=== PATIENT | female | born 1965 | race Caucasian/White ===

== ENCOUNTER 2017-09-12 13:53 | Inpatient (IN) | payer BC, SELFPAY ==
[2017-09-12] VITALS (12 sets, daily range): BP systolic 132–158; BP diastolic 63–117; PULSE 78–114; RESP 15–19; TEMP 37–37.8; O2SAT 87–97; BMI 44.3; BMI 44.0
--- NOTE | 2017-09-12 14:25 | EKG12_ITS ---
Test Reason : SOB Blood Pressure : / mmHG Vent. Rate : 091 BPM Atrial Rate : 091 BPM P-R Int : 160 ms QRS Dur : 080 ms QT Int : 350 ms P-R-T Axes : 024 -18 002 degrees QTc Int : 430 ms Normal sinus rhythm Nonspecific T wave abnormality Abnormal ECG Confirmed by LIDA MORRIS ([id number]), online editor SYDNI RED ([id number]) on 09/16/2017 1:47:07 PM Referred By: VAHE Confirmed By:LIDA MORRIS
--- NOTE | 2017-09-12 14:46 | RAD_ITS ---
STUDY: X-RAY CHEST REASON FOR EXAM: Female, 51 years old. Cough, Hypoxia and wheezing. TECHNIQUE: Frontal and lateral views of the chest. COMPARISON: 06/19/2017. FINDINGS: The lungs are clear and expanded. There is no demonstrated pleural abnormality. Normal size heart. Normal mediastinum and ashley. Normal visualized pulmonary arteries. Normal visualized aortic arch and descending thoracic aorta. Normal visualized thoracic spine. Normal visualized ribs, clavicles, and shoulders. There is no demonstrated abnormality of the visualized soft tissue structures of the upper abdomen. RAD/Chest PA and Lateral IMPRESSION: Normal x-ray examination of the chest. Electronically Signed: Fred Hansen MD at 15:14 EDT , Service support ,
[2017-09-12] MEDS: Albuterol 2.5 MG/3 ML VIAL.NEB. INHALATION (14:56)
[2017-09-12] MEDS: Ipratropium/Albuterol Sulfate 3 ML AMPUL.NEB INHALATION ×2 (14:56→19:55)
[2017-09-12 15:00] LABS: International Normalized Ratio 1.3; Prothrombin Time (Protime)PT. 15.8 SECONDS (11.7-14.9)
[2017-09-12 15:01] LABS: Partial Thromboplast Time 41.4 Seconds (24.1-36.2)
[2017-09-12 15:02] LABS: Absolute Lymphocyte Count 0.44 X10^3/ul (0.83-4.51); Absolute Neutrophil Count 2.7 X10^3/uL (2.0-7.7); Differential Indicated SCAN CRITERIA MET; Hematocrit 37.9 % (37-47); Hemoglobin 12.2 g/dl (12.0-15.0); Lymphocyte # 0.44 X10^3/ul (4.0); Lymphocyte % 13.6 % (19-41); Mean Corp Hgb Conc 32.2 g/gl (32-36); Mean Corpuscular Hgb 27.2 pg (27.0-32.0); Mean Corpuscular Volume 84.6 fL (81-99); Mean Platelet Vol. 8.6 fl (6.2-12.0); Monocyte% 3.1 % (0-10); Neutrophil # 2.69 X10^3/uL (2.7-7.7); Neutrophil % 83.3 % (47-70); POSITIVE COUNT NO; POSITIVE DIFFERENTIAL YES; POSITIVE MORPHOLOGY NO; Platelet Count 142 K/mm3 (150-450); RBC Distribution Width CV 14.9 % (11.6-14.6); RBC Distribution Width SD 46.3 fl (35.1-43.9); Red Blood Count 4.48 M/mm3 (4.2-5.4); White Blood Count 3.2 K/mm3 (4.4-11.0)
[2017-09-12 15:29] LABS: ALB/GLOB Ratio 0.8 RATIO (0.9-2.4); AST(SGOT) 20 U/L (15-37); Alanine Aminotransfer ALT/SGPT 28 U/L (13-56); Albumin, Serum 3.3 g/dL (3.2-5.0); Alkaline Phosphatase 78 U/L (45-117); Anion Gap 11 (5-15); BUN 10 mg/dL (7-18); BUN/Creat Ratio 17.7 RATIO (10-20); Calcium,Total 8.4 mg/dL (8.5-10.1); Chloride 98 mmol/L (98-107); Creatinine, Serum 0.56 mg/dL (0.55-1.02); EST Glomerular Filtration Rate 120 mL/min (>60); Est Glom Filt Rate - Afr Amer 145 mL/min (>60); Globulin 3.9 g/dL (2.2-4.2); Glucose 105 mg/dL (74-106); Potassium 3.4 mmol/L (3.5-5.1); Protein, Total 7.2 g/dL (6.4-8.2); Sodium Level 134 mmol/L (136-145)
--- NOTE | 2017-09-12 15:37 | ED.VISSUMM ---
- ER Visit Summary Date of Service: 09/12/17 Chief Complaint: Shortness of breath, productive cough and rattling in chest History of Present Illness: The patient is a 51 F who resents because of acute onset of respiratory illness that started Saturday. She has history of hypercholesterolemia, community acquired pneumonia and history of VTE. She does have factor V Leiden mutation. She is on Coumadin secondary to prior DVT. She reports compliance with her medications. She does smoke. She denies history of asthma or COPD. She denies leg pain, swelling discoloration. She denies chest pain of any type including pleuritic. She does complain of subjective fever with palpitations dyspnea productive cough of green colored sputum and dyspnea on exertion. She denies orthopnea or PND. She denies GI or symptoms. She denies myalgias arthralgias. She does combine of headache and weakness. She has paperwork that she brought and was treated with doxycycline and albuterol. Physical Examination: Is tachypnic. She is hypoxic with O2 saturation 80% on room air. She is heavyset with a BMI of 44.4. Blood pressure is elevated at 146/76. Initial respiratory rate was 26 with a heart rate of 76. Head is atraumatic normocephalic. Pupils are equal round reactive. Extraocular muscles are intact. TMs are pearly white with landmarks noted. Nares patent with no drainage. Posterior pharynx without erythema or exudate. Uvula is midline. There is no dysphonia or dysphasia. Trachea is midline. There is no stridor with auscultation of the neck. Heart is regular without murmur, gallop or rub. Lungs reveal wheezing throughout with increased x-ray phase. There is no egophony or increased vocal fremitus. Abdomen is soft nontender. There is no asymmetry, swelling, discoloration, leg vein distention, palpable cords or tenderness along the distribution of the deep venous system. Test Results: EKG sinus rhythm rate 91 and minimal ossific changes. Two-view chest x-ray is normal. White count is 3.2 thousand with 83% segs. Sodium is 134 potassium 3.4. INR is 1.3. Lactate is normal at 1.0. Hepatic is normal. Patient was reassessed at 1540. She still has wheezing. She is not wheezing as much as she did when she presented. She remains tachypneic with respiratory 26. She is presently on supplemental oxygen because she is hypoxic. Emergency Department Course and Treatment: Patient with respiratory symptoms concerned she may have sepsis infectious workup was undertaken. EKG was obtained to evaluate for cardiac ischemia. Chest x-ray to evaluate for pneumonia pneumothorax etc. Treatment Plan: Patient was treated with DuoNeb followed by 3 albuterol treatments. She also received 250 mg of Norflex IV piggyback. She was reassessed at 1540. Since she is still wheezing she received 125 mg of Solu-Medrol. Disposition: Since patient is hypoxic remains tachypnic and is still wheezing in spite of appropriate outpatient therapy and ER therapy hospitalist has been paged for admission Impression: 1. Respiratory failure with hypoxia 2. Bronchospasm 3. Purulent bronchitis 4. History of DVT 5. History of factor V Leiden mutation 6. Subtherapeutic INR This note was generated with [employer] dictation software. It may contain incorrect words, spelling, and punctuation that were not noted in review of the chart prior to signing ED Disposition - Plan for ED Patient: Chief Complaint: Shortness of Breath Referrals: Debora Treadwell DO [Primary Care Provider] -
[2017-09-12 15:39] LABS: Mucous, Urine 0 SEEN /hpf (<or=2+)
[2017-09-12 15:46] LABS: Platelet Estimate ADEQUATE (ADEQ); Red Cell Morphology NORM C+C NORMAL (NORM C&C)
[2017-09-12 15:47] LABS: Color, Urine Yellow (Yellow); Glucose, Dipstick Normal (Normal); Ketone-Dipstick 50 mg/dl (Negative); Leukocyte Esterase-Dipstick 100 /ul (Negative); Nitrite-Dipstick Negative (Negative); Occult Blood-Urine 25 /ul (Negative); Protein-Dipstick 15 mg/dl (Negative); Urine Bilirubin Dipstick Negative (Negative); Urine Clarity Sl. Cloudy (Clear); Urine Urobilinogen Normal (Normal)
[2017-09-12 16:10] LABS: Bacteria RARE /hpf (None Seen); Red Blood Cells-Urine 0-5 SEEN /hpf (0-5); Squamous Epithelial Cells - UA 10-25 SEEN /hpf (5-10); White Blood Cells 0-5 SEEN /hpf (0-5)
[2017-09-12] MEDS: MethylPREDNISolone 125 MG/2 ML Vial IV (16:15)
--- NOTE | 2017-09-12 16:43 | HP.PCM_ITS ---
Problem List (1) Chronic anticoagulation Status: Chronic (2) Factor V Leiden mutation Status: Chronic (3) Dyslipidemia Status: Chronic (4) History of recurrent deep vein thrombosis (DVT) Status: Chronic History of Present Illness Date of Admission: 09/12/17 Chief Complaint: Shortness of breath, productive cough. The patient is a 51 year old F with past medical history as mentioned above presented to the emergency room because of productive cough and shortness of breath. Her symptoms started 3 days ago with shortness of breath on minimal exertion, aggravated by activity, associated with productive cough with minimal amount of yellow sputum as well as subjective fever and without significant relieving factors. She did mention that she had fever at home of 102 Fahrenheit. She reported associated nasal congestion. On Saturday, she went to her PCPs office and she was given prescription for doxycycline. Her symptoms did not improve and she continued to have significant shortness of breath and cough. Today, she came to the emergency room. In the emergency room, she was afebrile, heart rate was stable, blood pressure was slightly elevated, pulse ox was 87% on room air which improved to 95% on 4 L. Her routine blood work is remarkable for sodium of 134 and potassium 3.4. Lactic acid was normal. LFT was normal. Urine revealed cloudy urine, negative for nitrite, 0-5 WBCs and rare bacteria. Chest x-ray showed no acute infiltrate, consultation or effusion. Her EKG revealed normal sinus rhythm without evidence of acute ischemic changes or cardiac arrhythmias. She is being admitted for acute bronchitis and hypoxia. Past Medical History Past Medical History (Chronic Problems): Chronic Problems Morbid obesity (Chronic) Chronic anticoagulation (Chronic) Factor V Leiden mutation (Chronic) Dyslipidemia (Chronic) History of recurrent deep vein thrombosis (DVT) (Chronic) Allergies Penicillins Allergy (Verified 09/12/17 13:53) Hives Sulfa (Sulfonamide Antibiotics) Allergy (Verified 09/12/17 13:53) Hives Home Medications: Ambulatory Orders Medication Instructions Recorded Simvastatin [Zocor] 20 mg PO QHS 06/13/17 Warfarin [Coumadin] 2 mg PO DAILY 06/13/17 Doxycycline 100 mg PO BID #8 cap 06/19/17 Ferrous Sulfate 325 mg PO BIDCM #60 tab 06/19/17 Hydrocodone Bit/Homatropine 5 - 10 ml PO QHS PRN PRN #60 ml 06/19/17 [Hycodan Syrup] Albuterol Sulfate [Proair 2 puff IH Q6H PRN PRN 09/12/17 Respiclick] Multivitamin [Multiple Vitamins] 1 each PO DAILY 09/12/17 Surgical History: noncontributory Psychiatric History: No pertinent psych hx Lives: Spouse/ Significant Other Smoking Status: Never smoker Alcohol: None Drugs: None - *Family History Maternal History Items: No pertinent history Paternal History Items: No pertinent history Review of Systems Constitutional: Reports: Fever. Denies: Anorexia, Chills, Weakness Eyes: Denies: Blurred vision, Double vision, Drainage, Redness HEENT: Reports: Nasal Congestion. Denies: Difficulty Hearing, Ear Pain, Eye Pain, Sore Throat Cardiovascular: Denies: Chest Pain, Chest Pressure, Edema, Heaviness, Light Headedness, Orthopnea, Paroxysmal Noc. Dyspnea, Syncope Respiratory: Reports: Cough, Shortness of breath upon exertion, Sputum production, Wheezing Gastrointestinal: Denies: Abdominal Pain, Constipation, Diarrhea, Nausea, Vomiting Genitourinary: Denies: Dysuria, Frequency, Hematuria Musculoskeletal: Denies: Arm Pain, Back Pain, Foot Pain Skin: Denies: Dryness, Rash Neurological: Denies: Balance problems, Double vision, Change in Speech, Slurred speech, Confusion, Focal weakness, Headaches, Incoordination, Numbness Psychiatric: Denies: Anxiety, Depression Endocrine: Denies: Change in Body Habitus, Polydipsia VTE Information - Inpt Only VTE Present on Admission: No VTE Mechan Device Prophylaxis: None VTE Pharm Prophylaxis ordered?: No - Physical Exam General: Alert, Oriented x3, Cooperative, - - Minimal shortness of breath HEENT: Atraumatic, PERRLA, EOMI Oral: Moist Mucosa, No Gingival or Mucosal Lesions/ Ulcerations Neck: Supple, No JVD, Negative Carotid Bruits, Trachea Midline, Thyroid Normal Size and Texture Lungs: Diminished, Rhonchi, Short of Breath, Wheezes, - - Decreased breath sounds bilateral, faint crackles on the right base, scattered rhonchi, occasional wheezes. Cardiovascular: Regular rate, Regular Rhythm, Normal S1, Normal S2, PMI Normal Abdomen: Bowel Sounds Present, Soft, Non Tender, Non-Distended, No Hepato- splenomegaly, Obese Extremities: No clubbing, No cyanosis, No edema Skin: No rashes, No breakdown Lymphatic: No Cervical, Supraclavicular, or Inguinal Adenopathy Neurological: Cranial nerves II-XII grossly intact, Motor Exam 5/5 strength throughout Psych/Mental Status: Normal Affect, Appropriate, Alert and oriented to time, place, person, mood and affect Vital Signs Temp Pulse Resp BP Pulse Ox 98.6 F 98 19 H 139/77 H 94 09/12/17 13:54 09/12/17 16:19 09/12/17 16:19 09/12/17 16:19 09/12/17 16:19 Oxygen Flow Rate (L/min) 2 Oxygen Delivery Method Room Air Weight: 242 lb 8.136 oz Body Mass Index (BMI) 44.3 Microbiology Past 72 Hours 09/12/17 15:18 Influenza Types A,B Direct FA (GRETCHEN) - Final Mucosa - Nose Laboratory Tests Past 24 Hrs 09/12/17 09/12/17 09/12/17 14:40 14:40 14:40 WBC 3.2 L RBC 4.48 Hgb 12.2 Hct 37.9 MCV 84.6 MCH 27.2 MCHC 32.2 RDW 14.9 H RDW Differential 46.3 H Plt Count 142 L MPV 8.6 Immature Gran % (Auto) 0.000 Neut % (Auto) 83.3 H Lymph % (Auto) 13.6 L [place] % (Auto) 3.1 Eos % (Auto) 0.0 Baso % (Auto) 0.0 Absolute Neuts (auto) 2.7 Absolute Lymphs (auto) 0.44 L Total Counted Not Reportable Differential Comment SEE COMMENT Platelet Estimate ADEQUATE RBC Morphology NORM C+C PT 15.8 H INR 1.3 APTT 41.4 H Sodium 134 L Potassium 3.4 L Chloride 98 Carbon Dioxide 25.0 Anion Gap 11 BUN 10 Creatinine 0.56 Estim Creat Clear Calc 94.00 Est GFR (MDRD) Af Amer 145 Est GFR (MDRD) Non-Af 120 BUN/Creatinine Ratio 17.7 Glucose 105 Lactic Acid Calcium 8.4 L Total Bilirubin 0.60 AST 20 ALT 28 Alkaline Phosphatase 78 Total Protein 7.2 Albumin 3.3 Globulin 3.9 Albumin/Globulin Ratio 0.8 L Urine Color Urine Clarity Urine pH Ur Specific [place] Urine Protein Urine Glucose (UA) Urine Ketones Urine Occult Blood Urine Nitrite Urine Bilirubin Urine Urobilinogen Ur Leukocyte Esterase Urine RBC Urine WBC Ur Squamous Epith Cells Urine Bacteria Urine Mucus 09/12/17 09/12/17 14:40 15:36 WBC RBC Hgb Hct MCV MCH MCHC RDW RDW Differential Plt Count MPV Immature Gran % (Auto) Neut % (Auto) Lymph % (Auto) [place] % (Auto) Eos % (Auto) Baso % (Auto) Absolute Neuts (auto) Absolute Lymphs (auto) Total Counted Differential Comment Platelet Estimate RBC Morphology PT INR APTT Sodium Potassium Chloride Carbon Dioxide Anion Gap BUN Creatinine Estim Creat Clear Calc Est GFR (MDRD) Af Amer Est GFR (MDRD) Non-Af BUN/Creatinine Ratio Glucose Lactic Acid 1.0 Calcium Total Bilirubin AST ALT Alkaline Phosphatase Total Protein Albumin Globulin Albumin/Globulin Ratio Urine Color Yellow Urine Clarity Sl. Cloudy Urine pH 6.0 Ur Specific [place] 1.010 Urine Protein 15 H Urine Glucose (UA) Normal Urine Ketones 50 H Urine Occult Blood 25 H Urine Nitrite Negative Urine Bilirubin Negative Urine Urobilinogen Normal Ur Leukocyte Esterase 100 H Urine RBC 0-5 SEEN Urine WBC 0-5 SEEN Ur Squamous Epith Cells 10-25 SEEN Urine Bacteria RARE Urine Mucus 0 SEEN Clinical Impression(s) from Imaging Studies Chest X-Ray 09/12/17 14:46 IMPRESSION: Normal x-ray examination of the chest. Electronically Signed: Fred Hansen MD at 15:14 EDT , Service support , Assessment/Plan This is a 51 years old female patient presented to the medicine because of shortness of breath, productive cough and she was found to have acute bronchitis with pulse oximeter of 89% on room air consistent with hypoxia. #1 acute bronchitis/hypoxia: Chest x-ray without acute findings, no infiltrate. Patient complained of shortness of breath, productive cough with sputum as well as has rhonchi and right basal crackles on auscultation. She is afebrile in the emergency room, no leukocytosis. Her pulse oximeter was 87% on room air in the emergency department. Plan: Admit to [facility] floor for observation, DuoNeb every 6 hours, Robitussin, empiric IV Levaquin for bronchitis, incentive spirometer, chest physiotherapy, sputum culture, nasal swab for influenza a and B, wean off oxygen as tolerated, repeat chest x-ray tomorrow morning. #2 history of factor V Leiden mutation/recurrent DVTs: Patient has been on Coumadin, INR subtherapeutic at 1.3. Plan: Continue Coumadin, start therapeutic Lovenox twice daily, repeat INR tomorrow morning. #3 hyperlipidemia: Continue statins. #4 chronic anemia: Admission hemoglobin is 12.2 g/dL, stable at baseline, no active bleeding. #5 DVT prophylaxis: She will be on Lovenox twice daily. This note was generated with [employer] dictation software. It may contain incorrect words, spelling, and punctuation that were not noted in checking the note before signing. Code Visit OBSV E&M: 17493 Initial observation care L3
[2017-09-12] MEDS: 0.9% NaCl Peripheral Flush Adult/Peds IV (19:50)
[2017-09-12] MEDS: Ferrous Sulfate 325 MG Tablet PO (19:50)
[2017-09-12] MEDS: Enoxaparin 120 MG/0.8 ML Syringe 110 MG SC (19:51)
[2017-09-12] MEDS: Atorvastatin Calcium 10 MG Tablet PO (22:21)
[2017-09-13] VITALS (9 sets, daily range): BP systolic 119–141; BP diastolic 76–88; PULSE 79–99; RESP 16–20; TEMP 36.6–38.3; O2SAT 93–99
[2017-09-13] MEDS: Acetaminophen 325 MG Tablet 650 MG PO (02:03)
[2017-09-13] MEDS: Ipratropium/Albuterol Sulfate 3 ML AMPUL.NEB INHALATION ×4 (02:13→18:53)
--- NOTE | 2017-09-13 04:10 | RAD_ITS ---
STUDY: X-RAY CHEST REASON FOR EXAM: Female, 51 years old. Unsuspected injury TECHNIQUE: Single frontal view COMPARISON: 09/12/2017 FINDINGS: Lungs are expanded. There are mild fibrotic changes at the lung bases. There are NO acute infiltrates. There is NO pleural effusion or pneumothorax. Normal size heart. Normal mediastinum and ashley. Normal visualized pulmonary arteries. Normal visualized aortic arch and descending thoracic aorta. Normal visualized thoracic spine. Normal visualized ribs, clavicles, and shoulders. There is no demonstrated abnormality of the visualized soft tissue structures of the upper abdomen. RAD/Chest 1 View (Portable) IMPRESSION: Lungs are expanded. There are mild fibrotic changes at the lung bases. There are NO acute infiltrates. There is NO pleural effusion or pneumothorax. Normal size heart. Electronically Signed: Garcia Perales MD at 7:25 EDT , Service support ,
[2017-09-13] MEDS: Enoxaparin 120 MG/0.8 ML Syringe 110 MG SC ×2 (05:06→17:14)
[2017-09-13 07:50] LABS: International Normalized Ratio 1.2; Prothrombin Time (Protime)PT. 15.6 SECONDS (11.7-14.9)
[2017-09-13 07:55] LABS: Absolute Neutrophil Count 2.1 X10^3/uL (2.0-7.7); Differential Indicated SCAN CRITERIA MET; Hematocrit 36.6 % (37-47); Hemoglobin 11.9 g/dl (12.0-15.0); Mean Corp Hgb Conc 32.5 g/gl (32-36); Mean Corpuscular Hgb 27.5 pg (27.0-32.0); Mean Corpuscular Volume 84.7 fL (81-99); Mean Platelet Vol. 8.9 fl (6.2-12.0); Monocyte# 0.19 X10^3/uL; Monocyte% 7.1 % (0-10); Neutrophil # 2.08 X10^3/uL (2.7-7.7); Neutrophil % 77.9 % (47-70); POSITIVE COUNT NO; POSITIVE DIFFERENTIAL YES; POSITIVE MORPHOLOGY NO; Platelet Count 171 K/mm3 (150-450); RBC Distribution Width CV 14.6 % (11.6-14.6); RBC Distribution Width SD 44.5 fl (35.1-43.9); Red Blood Count 4.32 M/mm3 (4.2-5.4); White Blood Count 2.7 K/mm3 (4.4-11.0)
[2017-09-13 08:11] LABS: Anion Gap 9 (5-15); BUN 9 mg/dL (7-18); BUN/Creat Ratio 16.9 RATIO (10-20); Calcium,Total 8.8 mg/dL (8.5-10.1); Chloride 102 mmol/L (98-107); Creatinine, Serum 0.53 mg/dL (0.55-1.02); EST Glomerular Filtration Rate 128 mL/min (>60); Est Glom Filt Rate - Afr Amer 155 mL/min (>60); Estimated Creatinine Clearance 99.32 ml/min; Glucose 125 mg/dL (74-106); Potassium 3.6 mmol/L (3.5-5.1); Sodium Level 136 mmol/L (136-145)
--- NOTE | 2017-09-13 09:05 | PCM.PN.HOSP ---
Subjective: Patient is a 51 year old lady with history of factor V Leyden mutation with recurrent DVTs who presented with progressive shortness of breath with significant hypoxia and assessment of acute bronchitis made patient admitted to regular nursing floor for further management Objective: GENERAL: cooperative HEENT: Clear conjunctiva, NECK; supple, normal thyroid, CHEST: Diminished to auscultation bilaterally, occasional wheezes HEART: Regular S1 S2, no audible murmurs ABDOMEN: soft, non-tender, normoactive bowel sounds, RECTAL: deferred EXTREMITIES: No edema, no clubbing, no cyanosis. 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 SKIN: No rash Vitals/I&O's: Vital Signs Temp Pulse Resp BP Pulse Ox 99.0 F 88 20 H 138/76 H 95 09/13/17 04:00 09/13/17 06:49 09/13/17 06:49 09/13/17 04:00 09/13/17 06:49 Oxygen Flow Rate (L/min) 2 Oxygen Delivery Method Nasal Cannula Weight: 109.3 kg Body Mass Index (BMI) 44.0 Intake and Output for Last 24 Hours 09/11/17 09/12/17 09/13/17 23:59 23:59 23:59 Intake Total 498 / 498 666 / 666 Balance 498 / 498 666 / 666 Microbiology Past 72 Hours 09/12/17 18:50 Sputum, Expectorated/Coughed Gram Stain - Preliminary Laboratory Results 09/13/17 06:48: WBC 2.7 L, RBC 4.32, Hgb 11.9 L, Hct 36.6 L, MCV 84.7, MCH 27.5, MCHC 32.5, RDW 14.6, RDW Differential 44.5 H, Plt Count 171, MPV 8.9, Immature Gran % (Auto) 0.000, Neut % (Auto) 77.9 H, Lymph % (Auto) 15.0 L, [place] % (Auto) 7.1, Eos % (Auto) 0.0, Baso % (Auto) 0.0, Absolute Neuts (auto) 2.1, Absolute Lymphs (auto) 0.40 L, Total Counted Not Reportable, Diff Path Review October09/13/17 06:48: PT 15.6 H, INR 1.2 09/13/17 06:48: Sodium 136, Potassium 3.6, Chloride 102, Carbon Dioxide 25.0, Anion Gap 9, BUN 9, Creatinine 0.53 L, Estim Creat Clear Calc 99.32, Est GFR (MDRD) Af Amer 155, Est GFR (MDRD) Non-Af 128, BUN/Creatinine Ratio 16.9, Glucose 125 H, Calcium 8.8 Current Medications Acetaminophen (Tylenol) 650 mg PO Q6H PRN PRN PRN Reason: Fever, headache, pain Last Admin: 09/13/17 02:03 Dose: 650 mg Albuterol/Ipratropium (Duoneb) 3 ml INHALATION Q6H.RT [facility] Last Admin: 09/13/17 06:49 Dose: 3 ml Atorvastatin Calcium (Lipitor) 10 mg PO QHS [facility] Last Admin: 09/12/17 22:21 Dose: 10 mg Enoxaparin Sodium (Lovenox) 110 mg 1 mg/kg (110 mg) SC Q12@0600,1800 [facility] Last Admin: 09/13/17 05:06 Dose: 110 mg Ferrous Sulfate (Ferrous Sulfate) 325 mg PO BIDCM [facility] Last Admin: 09/12/17 19:50 Dose: 325 mg Guaifenesin (Robitussin) 10 ml PO Q6H PRN PRN PRN Reason: COUGH/CONGESTION Potassium Chloride/Sodium Chloride () 1,000 mls @ 75 mls/hr IV .[id number] [facility] Last Admin: 09/12/17 19:50 Dose: 75 mls/hr Levofloxacin (Levaquin) 750 mg in 150 mls @ 100 mls/hr IV Q24 [facility] Sodium Chloride () 5 - 30 ml IV UD PRN PRN Reason: SALINE FLUSH Last Admin: 09/12/17 19:50 Dose: 10 ml Warfarin Sodium (Coumadin (Pbkc)) 2 mg PO DAILY@1700 [facility] Assessment/Plan Patient is a 51 year old lady with history of factor V Leyden mutation with recurrent DVTs who presented with progressive shortness of breath with significant hypoxia and assessment of acute bronchitis made patient admitted to regular nursing floor for further management 1. Acute infectious bronchitis with significant hypoxia patient has been admitted to regular nursing floor where she has been treated with Levaquin, bronchodilator treatment in addition to Robitussin for symptomatic treatment and supplemental oxygen titrated to keep oxygen saturation greater than 90. Did send for molecular respiratory panel 2. Factor V Leyden mutation with recurrent DVTs patient is on Coumadin INR was subtherapeutic on admission subsequently bridged with Lovenox 3. Dyslipidemia-patient is on statin therapy, continued at home dose 4. Obesity with BMI of 44.1 weight loss advised 5. DVT prophylaxis on Lovenox Clinical Impression(s) from Imaging Studies Chest X-Ray 09/12/17 14:46 IMPRESSION: Normal x-ray examination of the chest. Electronically Signed: Fred Hansen MD at 15:14 EDT , Service support , Chest X-Ray 09/13/17 04:10 IMPRESSION: Lungs are expanded. There are mild fibrotic changes at the lung bases. There are NO acute infiltrates. There is NO pleural effusion or pneumothorax. Normal size heart. Electronically Signed: Garcia Perales MD at 7:25 EDT , Service support , Code Visit Inpatient E&M: [id number] Subs Hosp L3
--- NOTE | 2017-09-13 09:12 | PN_ITS ---
Subjective: Patient is a 51 year old lady with history of factor V Leyden mutation with recurrent DVTs who presented with progressive shortness of breath with significant hypoxia and assessment of acute bronchitis made patient admitted to regular nursing floor for further management Objective: GENERAL: cooperative HEENT: Clear conjunctiva, NECK; supple, normal thyroid, CHEST: Diminished to auscultation bilaterally, occasional wheezes HEART: Regular S1 S2, no audible murmurs ABDOMEN: soft, non-tender, normoactive bowel sounds, RECTAL: deferred EXTREMITIES: No edema, no clubbing, no cyanosis. 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 SKIN: No rash Vitals/I&O's: Vital Signs Temp Pulse Resp BP Pulse Ox 99.0 F 88 20 H 138/76 H 95 09/13/17 04:00 09/13/17 06:49 09/13/17 06:49 09/13/17 04:00 09/13/17 06:49 Oxygen Flow Rate (L/min) 2 Oxygen Delivery Method Nasal Cannula Weight: 109.3 kg Body Mass Index (BMI) 44.0 Intake and Output for Last 24 Hours 09/11/17 09/12/17 09/13/17 23:59 23:59 23:59 Intake Total 498 / 498 666 / 666 Balance 498 / 498 666 / 666 Microbiology Past 72 Hours 09/12/17 18:50 Sputum, Expectorated/Coughed Gram Stain - Preliminary Laboratory Results 09/13/17 06:48: WBC 2.7 L, RBC 4.32, Hgb 11.9 L, Hct 36.6 L, MCV 84.7, MCH 27.5 , MCHC 32.5, RDW 14.6, RDW Differential 44.5 H, Plt Count 171, MPV 8.9, Immature Gran % (Auto) 0.000, Neut % (Auto) 77.9 H, Lymph % (Auto) 15.0 L, [place] % (Auto) 7.1, Eos % (Auto) 0.0, Baso % (Auto) 0.0, Absolute Neuts (auto) 2.1, Absolute Lymphs (auto) 0.40 L, Total Counted Not Reportable, Diff Path Review October09/13/17 06:48: PT 15.6 H, INR 1.2 09/13/17 06:48: Sodium 136, Potassium 3.6, Chloride 102, Carbon Dioxide 25.0, Anion Gap 9, BUN 9, Creatinine 0.53 L, Estim Creat Clear Calc 99.32, Est GFR ( MDRD) Af Amer 155, Est GFR (MDRD) Non-Af 128, BUN/Creatinine Ratio 16.9, Glucose 125 H, Calcium 8.8 Current Medications Acetaminophen (Tylenol) 650 mg PO Q6H PRN PRN PRN Reason: Fever, headache, pain Last Admin: 09/13/17 02:03 Dose: 650 mg Albuterol/Ipratropium (Duoneb) 3 ml INHALATION Q6H.RT [facility] Last Admin: 09/13/17 06:49 Dose: 3 ml Atorvastatin Calcium (Lipitor) 10 mg PO QHS [facility] Last Admin: 09/12/17 22:21 Dose: 10 mg Enoxaparin Sodium (Lovenox) 110 mg 1 mg/kg (110 mg) SC Q12@0600,1800 [facility] Last Admin: 09/13/17 05:06 Dose: 110 mg Ferrous Sulfate (Ferrous Sulfate) 325 mg PO BIDCM [facility] Last Admin: 09/12/17 19:50 Dose: 325 mg Guaifenesin (Robitussin) 10 ml PO Q6H PRN PRN PRN Reason: COUGH/CONGESTION Potassium Chloride/Sodium Chloride () 1,000 mls @ 75 mls/hr IV .[id number] [facility] Last Admin: 09/12/17 19:50 Dose: 75 mls/hr Levofloxacin (Levaquin) 750 mg in 150 mls @ 100 mls/hr IV Q24 [facility] Sodium Chloride () 5 - 30 ml IV UD PRN PRN Reason: SALINE FLUSH Last Admin: 09/12/17 19:50 Dose: 10 ml Warfarin Sodium (Coumadin (Pbkc)) 2 mg PO DAILY@1700 [facility] Assessment/Plan Patient is a 51 year old lady with history of factor V Leyden mutation with recurrent DVTs who presented with progressive shortness of breath with significant hypoxia and assessment of acute bronchitis made patient admitted to regular nursing floor for further management 1. Acute infectious bronchitis with significant hypoxia patient has been admitted to regular nursing floor where she has been treated with Levaquin, bronchodilator treatment in addition to Robitussin for symptomatic treatment and supplemental oxygen titrated to keep oxygen saturation greater than 90. Did send for molecular respiratory panel 2. Factor V Leyden mutation with recurrent DVTs patient is on Coumadin INR was subtherapeutic on admission subsequently bridged with Lovenox 3. Dyslipidemia-patient is on statin therapy, continued at home dose 4. Obesity with BMI of 44.1 weight loss advised 5. DVT prophylaxis on Lovenox Clinical Impression(s) from Imaging Studies Chest X-Ray 09/12/17 14:46 IMPRESSION: Normal x-ray examination of the chest. Electronically Signed: Fred Hansen MD at 15:14 EDT , Service support , Chest X-Ray 09/13/17 04:10 IMPRESSION: Lungs are expanded. There are mild fibrotic changes at the lung bases. There are NO acute infiltrates. There is NO pleural effusion or pneumothorax. Normal size heart. Electronically Signed: Garcia Perales MD at 7:25 EDT , Service support , Code Visit Inpatient E&M: [id number] Subs Hosp L3
--- NOTE | 2017-09-13 10:04 | NURSING ---
CPS Nabil reminded respiratory panel needs collected.
[2017-09-13] MEDS: Ferrous Sulfate 325 MG Tablet PO ×2 (10:44→17:13)
--- NOTE | 2017-09-13 10:59 | CASEMGMT ---
RN REBECCA Face to Face with patient for initial transition planning/care coordination assessment. RN CM introduced self and role at [facility]. Patient sitting in chair, alert and oriented. Patient willing to participate in assessment and is able to answer all questions appropriately. Care providers, pharmacy, and demographics verified. See link attached. Patient wishes to discharge home, denies need for home health at this time. Patient states she has no further needs or concerns at this time. CM to follow for discharge planning needs that may arise. Disposition Plan: Patient to discharge home with family support and follow up plans in place.
[2017-09-13] MEDS: Atorvastatin Calcium 10 MG Tablet PO (21:27)
[2017-09-14] VITALS (7 sets, daily range): BP systolic 114–121; BP diastolic 61–80; PULSE 81–94; RESP 16–21; TEMP 36.5–37.1; O2SAT 94–97
[2017-09-14] MEDS: Ipratropium/Albuterol Sulfate 3 ML AMPUL.NEB INHALATION ×3 (00:27→13:17)
[2017-09-14] MEDS: Enoxaparin 120 MG/0.8 ML Syringe 110 MG SC ×2 (05:59→18:08)
[2017-09-14 06:49] LABS: Hematocrit 34.3 % (37-47); Hemoglobin 11.1 g/dl (12.0-15.0); Mean Corp Hgb Conc 32.4 g/gl (32-36); Mean Corpuscular Hgb 27.8 pg (27.0-32.0); Mean Corpuscular Volume 85.8 fL (81-99); Mean Platelet Vol. 8.5 fl (6.2-12.0); Platelet Count 180 K/mm3 (150-450); RBC Distribution Width CV 14.8 % (11.6-14.6); RBC Distribution Width SD 45.1 fl (35.1-43.9); Scan Indicated on CBC? Y/N NO; White Blood Count 3.4 K/mm3 (4.4-11.0)
[2017-09-14 07:06] LABS: Anion Gap 9 (5-15); BUN 10 mg/dL (7-18); Calcium,Total 8.2 mg/dL (8.5-10.1); Chloride 105 mmol/L (98-107); Creatinine, Serum 0.59 mg/dL (0.55-1.02); EST Glomerular Filtration Rate 114 mL/min (>60); Est Glom Filt Rate - Afr Amer 138 mL/min (>60); Estimated Creatinine Clearance 89.22 ml/min; Glucose 98 mg/dL (74-106); Magnesium 2.1 mg/dL (1.6-2.6); Potassium 3.4 mmol/L (3.5-5.1); Sodium Level 139 mmol/L (136-145)
[2017-09-14] MEDS: Ferrous Sulfate 325 MG Tablet PO ×2 (09:01→17:58)
--- NOTE | 2017-09-14 17:11 | PCM.DC ---
- Discharge Diagnoses Current Active Problems: Acute bronchitis with viral infection, with bronchospasm. Acute hypoxia. Factor V laden deficiency. Dyslipidemia. Obesity, BMI 44.1. You will use the following diet at home:: Cardiac Discharge Activity: No Restrictions Allergies/Adverse Reactions: Allergies Penicillins Allergy (Verified 09/12/17 13:53) Hives Sulfa (Sulfonamide Antibiotics) Allergy (Verified 09/12/17 13:53) Hives Medications to take at Discharge Simvastatin [Zocor] 20 mg PO QHS 06/13/17 Ferrous Sulfate 325 mg PO BIDCM #60 tab 06/19/17 Hydrocodone Bit/Homatropine [Hycodan Syrup] 5 - 10 ml PO QHS PRN PRN #60 ml 06/19/17 Albuterol Sulfate [Proair Respiclick] 2 puff IH Q6H PRN PRN 09/12/17 Multivitamin [Multiple Vitamins] 1 each PO DAILY 09/12/17 Enoxaparin Sodium [Lovenox] 120 mg SQ Q12H #14 syringe 09/14/17 Guaifenesin [Robitussin] 10 ml PO Q6H PRN PRN udc 09/14/17 Levofloxacin [Levaquin] 500 mg PO DAILY #3 tab 09/14/17 Prednisone 10 mg PO DAILY #21 tab 09/14/17 Warfarin [Coumadin] 3 mg PO DAILY #20 tab 09/14/17 The following prescriptions were given: Enoxaparin Sodium [Lovenox] 120 mg SQ Q12H #14 syringe Levofloxacin [Levaquin] 500 mg PO DAILY #3 tab Prednisone 10 mg PO DAILY #21 tab Warfarin [Coumadin] 3 mg PO DAILY #20 tab Primary Care Physician: Debora Treadwell DO [Primary Care Provider] - Please follow up with your Primary Care Physician in: in 1 to 2 weeks.
--- NOTE | 2017-09-14 17:13 | PCM.DC.SUM ---
Discharge Date and Diagnosis Date of Admission: 09/12/17 Date of Discharge: 09/14/17 - Primary Discharge Diagnosis Acute bronchitis with viral infection, with bronchospasm. Acute hypoxia. Factor V laden deficiency. Dyslipidemia. Hypokalemia. Obesity, BMI 44.1. - Secondary Discharge Diagnosis Chronic Problems Morbid obesity (Chronic) Chronic anticoagulation (Chronic) Factor V Leiden mutation (Chronic) Dyslipidemia (Chronic) History of recurrent deep vein thrombosis (DVT) (Chronic) Hospital Course and Treatment Imaging Results: Diagnostic Data Chest X-Ray 09/13/17 04:10 IMPRESSION: Lungs are expanded. There are mild fibrotic changes at the lung bases. There are NO acute infiltrates. There is NO pleural effusion or pneumothorax. Normal size heart. Electronically Signed: Garcia Perales MD at 7:25 EDT , Service support , Renewals Manager: None. Operations: None Procedures: None Summary of Care Provided: Patient is a 51 year old lady with history of factor V Leyden mutation with recurrent DVTs who presented with progressive shortness of breath with significant hypoxia and assessment of acute bronchitis made patient admitted to regular nursing floor for further management. She was started on DuoNeb bronchodilator treatment. On the day of discharge, oxygen saturation improved to upper 90's with room air. She has significant wheezing still on examination, started on prednisone and plan to discharge with tapering dose. Plan to continue levaquin for next 3 days to complete 5 days. Continue albuterol MDI prn at home. Continue Lovenox for INR 1.2, and increase warfarin to 3 mg po qPM from 2 mg. 1. Acute infectious bronchitis with significant hypoxia patient has been admitted to regular nursing floor where she has been treated with Levaquin, bronchodilator treatment in addition to Robitussin for symptomatic treatment and supplemental oxygen titrated to keep oxygen saturation greater than 90. Viral panel positive for human metaphneumo virus. She is doing well clinically. OK to discharge to home with oral prednisone. 2. Factor V Leyden mutation with recurrent DVTs patient is on Coumadin INR was subtherapeutic on admission subsequently bridged with Lovenox 3. Dyslipidemia-patient is on statin therapy, continued at home dose 4. Obesity with BMI of 44.1 weight loss advised 5. Hypokalemia. Corrected with KCL in IVF and oral KCL. Discharge Diet: Low fat/ Low Cholesterol Discharge Activity: Return to Normal Activity, No Restrictions Home Medications: Medications to take at Discharge Simvastatin [Zocor] 20 mg PO QHS 06/13/17 Ferrous Sulfate 325 mg PO BIDCM #60 tab 06/19/17 Hydrocodone Bit/Homatropine [Hycodan Syrup] 5 - 10 ml PO QHS PRN PRN #60 ml 06/19/17 Albuterol Sulfate [Proair Respiclick] 2 puff IH Q6H PRN PRN 09/12/17 Multivitamin [Multiple Vitamins] 1 each PO DAILY 09/12/17 Enoxaparin Sodium [Lovenox] 120 mg SQ Q12H #14 syringe 09/14/17 Guaifenesin [Robitussin] 10 ml PO Q6H PRN PRN udc 09/14/17 Levofloxacin [Levaquin] 500 mg PO DAILY #3 tab 09/14/17 Prednisone 10 mg PO DAILY #21 tab 09/14/17 Warfarin [Coumadin] 3 mg PO DAILY #20 tab 09/14/17 Following Prescrptions Were Given to Patient: Enoxaparin Sodium [Lovenox] 120 mg SQ Q12H #14 syringe Levofloxacin [Levaquin] 500 mg PO DAILY #3 tab Prednisone 10 mg PO DAILY #21 tab Warfarin [Coumadin] 3 mg PO DAILY #20 tab Primary Care Physician: Debora Treadwell DO [Primary Care Provider] - Please follow up with your Primary Care Physician in: in 1 to 2 weeks. Disposition: Home Minutes spent on discharge:: 30 Medical Necessity - Tobacco Use Smoking Status: Never smoker Tobacco Use: Non-smoker Meaningful Use Info Meaningful Use Diagnoses (Choose all that apply): None applicable Code Visit Inpatient E&M: 39167 Disch Hosp
--- NOTE | 2017-09-14 17:22 | DS.PCM_ITS ---
Discharge Date and Diagnosis Date of Admission: 09/12/17 Date of Discharge: 09/14/17 - Primary Discharge Diagnosis Acute bronchitis with viral infection, with bronchospasm. Acute hypoxia. Factor V laden deficiency. Dyslipidemia. Hypokalemia. Obesity, BMI 44.1. - Secondary Discharge Diagnosis Chronic Problems Morbid obesity (Chronic) Chronic anticoagulation (Chronic) Factor V Leiden mutation (Chronic) Dyslipidemia (Chronic) History of recurrent deep vein thrombosis (DVT) (Chronic) Hospital Course and Treatment Imaging Results: Diagnostic Data Chest X-Ray 09/13/17 04:10 IMPRESSION: Lungs are expanded. There are mild fibrotic changes at the lung bases. There are NO acute infiltrates. There is NO pleural effusion or pneumothorax. Normal size heart. Electronically Signed: Garcia Perales MD at 7:25 EDT , Service support , Flame Cutter: None. Operations: None Procedures: None Summary of Care Provided: Patient is a 51 year old lady with history of factor V Leyden mutation with recurrent DVTs who presented with progressive shortness of breath with significant hypoxia and assessment of acute bronchitis made patient admitted to regular nursing floor for further management. She was started on DuoNeb bronchodilator treatment. On the day of discharge, oxygen saturation improved to upper 90's with room air. She has significant wheezing still on examination, started on prednisone and plan to discharge with tapering dose. Plan to continue levaquin for next 3 days to complete 5 days. Continue albuterol MDI prn at home. Continue Lovenox for INR 1.2, and increase warfarin to 3 mg po qPM from 2 mg. 1. Acute infectious bronchitis with significant hypoxia patient has been admitted to regular nursing floor where she has been treated with Levaquin, bronchodilator treatment in addition to Robitussin for symptomatic treatment and supplemental oxygen titrated to keep oxygen saturation greater than 90. Viral panel positive for human metaphneumo virus. She is doing well clinically. OK to discharge to home with oral prednisone. 2. Factor V Leyden mutation with recurrent DVTs patient is on Coumadin INR was subtherapeutic on admission subsequently bridged with Lovenox 3. Dyslipidemia-patient is on statin therapy, continued at home dose 4. Obesity with BMI of 44.1 weight loss advised 5. Hypokalemia. Corrected with KCL in IVF and oral KCL. Discharge Diet: Low fat/ Low Cholesterol Discharge Activity: Return to Normal Activity, No Restrictions Home Medications: Medications to take at Discharge Simvastatin [Zocor] 20 mg PO QHS 06/13/17 Ferrous Sulfate 325 mg PO BIDCM #60 tab 06/19/17 Hydrocodone Bit/Homatropine [Hycodan Syrup] 5 - 10 ml PO QHS PRN PRN #60 ml Albuterol Sulfate [Proair Respiclick] 2 puff IH Q6H PRN PRN 09/12/17 Multivitamin [Multiple Vitamins] 1 each PO DAILY 09/12/17 Enoxaparin Sodium [Lovenox] 120 mg SQ Q12H #14 syringe 09/14/17 Guaifenesin [Robitussin] 10 ml PO Q6H PRN PRN udc 09/14/17 Levofloxacin [Levaquin] 500 mg PO DAILY #3 tab 09/14/17 Prednisone 10 mg PO DAILY #21 tab 09/14/17 Warfarin [Coumadin] 3 mg PO DAILY #20 tab 09/14/17 Following Prescrptions Were Given to Patient: Enoxaparin Sodium [Lovenox] 120 mg SQ Q12H #14 syringe Levofloxacin [Levaquin] 500 mg PO DAILY #3 tab Prednisone 10 mg PO DAILY #21 tab Warfarin [Coumadin] 3 mg PO DAILY #20 tab Primary Care Physician: Debora Treadwell DO [Primary Care Provider] - Please follow up with your Primary Care Physician in: in 1 to 2 weeks. Disposition: Home Minutes spent on discharge:: 30 Medical Necessity - Tobacco Use Smoking Status: Never smoker Tobacco Use: Non-smoker Meaningful Use Info Meaningful Use Diagnoses (Choose all that apply): None applicable Code Visit Inpatient E&M: 70949 Disch Hosp
[2017-09-16 11:13] LABS: Pathologist Review Reviewed
== END 2017-09-14 18:24 | disposition home or self-care (01) | DRG 202 ==
LOC: ED 15:46 → MS3 18:01
PROVIDERS: Internal Medicine; Admitting Provider Hospitalist; Emergency Provider Emergency Medicine; Family Provider Internal Medicine; PCP Internal Medicine; Visit Provider Hospitalist
DX: J20.8 Acute bronchitis due to other specified organisms (principal); Z68.41 Body mass index [BMI] 40.0-44.9, adult; D68.51 Activated protein C resistance; E66.01 Morbid (severe) obesity due to excess calories; B97.81 Human metapneumovirus as the cause of diseases classified elsewhere; E87.6 Hypokalemia; E78.5 Hyperlipidemia, unspecified; Z79.01 Long term (current) use of anticoagulants; Z86.718 Personal history of other venous thrombosis and embolism; R09.02 Hypoxemia
CPT/HCPCS: 36415; 71045; 71046; 80048; 80053; 81001; 83605; 83735; 85025; 85027; 85610; 85730; 87040; 87070; 87077; 87086; 87088; 87186; 87205; 87633; 87804; 93005; 94640; 94667; 94668; 99283; J7040; A4216

== ENCOUNTER → 2017-09-16 12:27 | Outpatient (CLI) | payer BC, SELFPAY ==
--- NOTE | 2017-09-16 12:30 | HPBI_ITS ---
MAMMOGRAPHY - BILATERAL SCREENING REASON FOR EXAM: Female, 51 years old. Routine annual screening examination. PERTINENT HISTORY: Non-contributory. TECHNIQUE: Digital bilateral breast daphne (3D mammographic acquisition) in the CC and MLO projections. 2-D mediolateral oblique (MLO) and craniocaudad (CC) views of both breasts were obtained. CAD: Full Field Digital Mammography with Computer Added Detection was performed. COMPARISON: Comparison is made with prior examination October 07, 2015 and September 17, 2014 FINDINGS: Breast Composition: The breasts are almost entirely fatty. There are no dominant masses or suspicious calcifications. No other significant abnormalities are identified. There has been no significant change since the prior study. HPBI/SCREENING MAMM (CAD), BILAT IMPRESSION: Stable bilateral screening mammogram. Yearly follow-up mammogram recommended. (A) ASSESSMENT CATEGORY: BIRADS Category 1: Negative. A letter regarding these results will be sent to the patient by the facility within 30 days. Approximately 10% of breast cancers are not detected by mammography. A normal mammogram should not delay biopsy of a clinically suspicious abnormality. [id number] Electronically Signed: Bartolo Rausch MD at 14:16 EDT Tel [phone], Service support ,
== END ==
PROVIDERS: Family Provider Internal Medicine; PCP Internal Medicine; Visit Provider Internal Medicine
DX: Z12.31 Encounter for screening mammogram for malignant neoplasm of breast (principal)
CPT/HCPCS: 77063; 77067

== ENCOUNTER → 2017-09-16 13:40 | Outpatient (CLI) | payer BC, SELFPAY ==
[2017-09-16 13:54] LABS: International Normalized Ratio 1.3; Prothrombin Time (Protime)PT. 15.7 SECONDS (11.7-14.9)
== END ==
PROVIDERS: Family Provider Internal Medicine; PCP Internal Medicine; Visit Provider Internal Medicine
DX: I82.409 Acute embolism and thrombosis of unspecified deep veins of unspecified lower extremity (principal)
CPT/HCPCS: 85610

== ENCOUNTER → 2018-10-10 07:33 | Outpatient (CLI) | payer BC, SELFPAY ==
--- NOTE | 2018-10-10 06:55 | BI_ITS ---
MAMMOGRAPHY - BILATERAL SCREENING REASON FOR EXAM: Female, 52 years old. Routine annual screening examination. PERTINENT HISTORY: Non-contributory. TECHNIQUE: Digital bilateral breast daphne (3D mammographic acquisition) in the CC and MLO projections. 2-D mediolateral oblique (MLO) and craniocaudad (CC) views of both breasts were obtained. CAD: Full Field Digital Mammography with Computer Added Detection was performed. COMPARISON: Comparison is made with prior study dated September 16, 2017 and October 07, 2015. FINDINGS: Breast Composition: The breasts are almost entirely fatty. There are no dominant masses or suspicious calcifications. Stable benign-appearing right axillary lymph nodes. No other significant abnormalities are identified. There has been no significant change since the prior study. BI/SCREENING MAMM (CAD), BILAT IMPRESSION: Stable bilateral screening mammogram. Yearly follow-up mammogram recommended. (A) ASSESSMENT CATEGORY: BIRADS Category 2: Benign. A letter regarding these results will be sent to the patient by the facility within 30 days. Approximately 10% of breast cancers are not detected by mammography. A normal mammogram should not delay biopsy of a clinically suspicious abnormality. [id number] Electronically Signed: Bartolo Rausch, at 10:57 EDT , Service support ,
== END ==
PROVIDERS: Family Provider Internal Medicine; PCP Internal Medicine; Referring Provider Internal Medicine; Visit Provider Internal Medicine
DX: Z12.31 Encounter for screening mammogram for malignant neoplasm of breast (principal)
CPT/HCPCS: 77063; 77067

== ENCOUNTER 2021-09-02 07:11 | Outpatient (CLI) | payer BC, SELFPAY ==
[2021-09-02 07:20] LABS: Mucous, Urine 0 SEEN /hpf (<or=2+)
[2021-09-02 07:52] LABS: Absolute Lymphocyte Count 1.43 X10^3/uL (0.83-4.51); Absolute Neutrophil Count 1.8 X10^3/uL (2.0-7.7); Basophil# 0.03 X10^3/uL; Basophil% 0.8 % (0-1); Color, Urine Yellow (Yellow); Eosinophil# 0.35 X10^3/uL; Eosinophils% 9.1 % (0-5); Glucose, Dipstick Normal (Normal); Hematocrit 42.1 % (37-47); Hemoglobin 13.5 g/dL (12.0-15.0); Ketone-Dipstick Negative (Negative); Leukocyte Esterase-Dipstick 500 /ul (Negative); Lymphocyte # 1.43 X10^3/ul (0.83-4.51); Mean Corp Hgb Conc 32.1 g/dL (32-36); Mean Corpuscular Hgb 27.8 pg (27.0-32.0); Mean Corpuscular Volume 86.6 fL (81-99); Mean Platelet Vol. 9.6 fl (6.2-12.0); Monocyte# 0.29 X10^3/uL; Monocyte% 7.5 % (0-10); NRBC Flagged by Analyzer 0 % (0-5); Neutrophil # 1.75 X10^3/uL (2.7-7.7); Neutrophil % 45.3 % (47-70); Nitrite-Dipstick Negative (Negative); Occult Blood-Urine 25 /ul (Negative); Platelet Count 212 K/mm3 (150-450); Protein-Dipstick 30 mg/dl (Negative); RBC Distribution Width CV 13.7 % (11.6-14.6); RBC Distribution Width SD 43.6 fl (35.1-43.9); Red Blood Count 4.86 M/mm3 (4.2-5.4); Specific Gravity, Urine 1.015 (1.002-1.030); Urine Bilirubin Dipstick Negative (Negative); Urine Clarity Sl. Cloudy (Clear); Urine Urobilinogen Normal (Normal); Urine pH 6.5 (5.0 - 8.0); White Blood Count 3.9 K/mm3 (4.4-11.0)
[2021-09-02 08:04] LABS: Squamous Epithelial Cells - UA 5-10 SEEN /hpf (5-10); White Blood Cells 25-50 SEEN /hpf (0-5)
[2021-09-02 08:05] LABS: Bacteria 1+ /hpf (None Seen); Red Blood Cells-Urine 0-5 SEEN /hpf (0-5)
[2021-09-02 08:18] LABS: Microalbumin,Random Urine 74.2 mg/L (NO RANGE EST.); Microalbumin:Creatinine Ratio 68.7 mg/g CRE (<30 mg/g CRE)
[2021-09-02 08:24] LABS: ALB/GLOB Ratio 0.9 RATIO (0.9-2.4); AST(SGOT) 16 U/L (15-37); Alanine Aminotransfer ALT/SGPT 28 U/L (13-56); Albumin, Serum 3.6 g/dL (3.2-5.0); Alkaline Phosphatase 78 U/L (45-117); Anion Gap 3 (5-15); BUN 14 mg/dL (7-18); BUN/Creat Ratio 18.8 RATIO (10-20); Chloride 106 mmol/L (98-107); Cholesterol 162 mg/dL (200); Creatinine, Serum 0.74 mg/dL (0.55-1.02); EST Glomerular Filtration Rate 86 mL/min (>60); Est Glom Filt Rate - Afr Amer 104 mL/min (>60); Globulin 3.8 g/dL (2.2-4.2); Glucose 99 mg/dL (74-106); High Density Lipoprotein 61 mg/dL; Potassium 3.7 mmol/L (3.5-5.1); Protein, Total 7.4 g/dL (6.4-8.2); Sodium Level 140 mmol/L (136-145); Thyroid Stim Hormone (TSH) 2.77 uIU/mL (0.358-3.74); Triglycerides 123 mg/dL; Very Low Density Lipoprotein 25 mg/dL (5-40)
[2021-09-02 10:11] LABS: Prothrombin Time (Protime)PT. 22.3 SECONDS (11.7-14.9)
== END 2021-09-02 23:59 | disposition home or self-care (01) ==
LOC: LAB 07:13
PROVIDERS: PCP Internal Medicine; Referring Provider Internal Medicine; Visit Provider Internal Medicine
DX: I10 Essential (primary) hypertension (principal); E78.2 Mixed hyperlipidemia; Z79.01 Long term (current) use of anticoagulants
CPT/HCPCS: 36415; 80053; 80061; 81001; 82043; 82570; 84443; 85025; 85610

== ENCOUNTER 2021-09-18 06:33 | Outpatient (RCR) | payer BC, SELFPAY ==
[2021-09-18 07:08] LABS: Absolute Lymphocyte Count 1.83 X10^3/uL (0.83-4.51); Absolute Neutrophil Count 1.6 X10^3/uL (2.0-7.7); Basophil# 0.03 X10^3/uL; Basophil% 0.8 % (0-1); Eosinophil# 0.25 X10^3/uL; Eosinophils% 6.3 % (0-5); Hematocrit 38.4 % (37-47); Hemoglobin 12.7 g/dL (12.0-15.0); Lymphocyte # 1.83 X10^3/ul (0.83-4.51); Mean Corp Hgb Conc 33.1 g/dL (32-36); Mean Corpuscular Hgb 28.4 pg (27.0-32.0); Mean Corpuscular Volume 85.9 fL (81-99); Mean Platelet Vol. 9.4 fl (6.2-12.0); Monocyte% 7.5 % (0-10); NRBC Flagged by Analyzer 0 % (0-5); Neutrophil # 1.57 X10^3/uL (2.7-7.7); Neutrophil % 39.4 % (47-70); Platelet Count 197 K/mm3 (150-450); RBC Distribution Width CV 13.9 % (11.6-14.6); RBC Distribution Width SD 43.4 fl (35.1-43.9); Red Blood Count 4.47 M/mm3 (4.2-5.4)
[2021-09-18 07:16] LABS: Prothrombin Time (Protime)PT. 21.8 SECONDS (11.7-14.9)
== END 2021-09-28 18:00 | disposition home or self-care (01) ==
LOC: LAB 06:33
PROVIDERS: PCP Internal Medicine; Referring Provider Internal Medicine; Visit Provider Internal Medicine
DX: Z79.01 Long term (current) use of anticoagulants (principal)
CPT/HCPCS: 36415; 85025; 85610

== ENCOUNTER 2021-09-22 07:04 | Outpatient (CLI) | payer BC, SELFPAY ==
--- NOTE | 2021-09-22 07:06 | BI_ITS ---
MAMMOGRAPHY - BILATERAL SCREENING REASON FOR EXAM: Female, 55 years old. Routine annual screening examination. PERTINENT HISTORY: Non-contributory. TECHNIQUE: Digital bilateral breast fco (3D mammographic acquisition) in the CC and MLO projections. 2-D mediolateral oblique (MLO) and craniocaudad (CC) views of both breasts were obtained. CAD: Full Field Digital Mammography with Computer Added Detection was performed. COMPARISON: Comparison is made with prior study dated 10/10/2018 and 09/16/2017. FINDINGS: Breast Composition: The breasts are almost entirely fatty. There are no dominant masses or suspicious calcifications. No other significant abnormalities are identified. There has been no significant change since the prior study. BI/SCRN MAMM (CAD)W/FCO BILAT IMPRESSION: Stable bilateral screening mammogram. Yearly follow-up mammogram recommended. (A) ASSESSMENT CATEGORY: BIRADS Category 1: Negative. A letter regarding these results will be sent to the patient by the facility within 30 days. Approximately 10% of breast cancers are not detected by mammography. A normal mammogram should not delay biopsy of a clinically suspicious abnormality. [id number] Electronically Signed: Bartolo Rausch MD at 8:19 EDT ,
== END 2021-09-22 23:59 | disposition home or self-care (01) ==
LOC: OPBI 07:05
PROVIDERS: PCP Internal Medicine; Referring Provider Internal Medicine; Visit Provider Internal Medicine
DX: Z12.31 Encounter for screening mammogram for malignant neoplasm of breast (principal)
CPT/HCPCS: 77063; 77067

== ENCOUNTER → 2023-02-28 | Outpatient (CLI) | payer BC, SELFPAY ==
--- NOTE | 2023-02-28 07:25 | BI_ITS ---
MAMMOGRAPHY - BILATERAL SCREENING REASON FOR EXAM: Female, 57 years old. Routine annual screening examination. PERTINENT HISTORY: Non-contributory. TECHNIQUE: Digital bilateral breast fco (3D mammographic acquisition) in the CC and MLO projections. 2-D mediolateral oblique (MLO) and craniocaudad (CC) views of both breasts were obtained. CAD: Full Field Digital Mammography with Computer Added Detection was performed. COMPARISON: Comparison is made with prior study September 22, 2021 and October 10, 2018. FINDINGS: Breast Composition: The breasts are almost entirely fatty. There are no dominant masses or suspicious calcifications. Stable small benign-appearing bilateral axillary lymph nodes. No other significant abnormalities are identified. There has been no significant change since the prior study. BI/SCRN MAMM (CAD)W/FCO BILAT IMPRESSION: Stable bilateral screening mammogram. Yearly follow-up mammogram recommended. (A) ASSESSMENT CATEGORY: BIRADS Category 2: Benign. A letter regarding these results will be sent to the patient by the facility within 30 days. Approximately 10% of breast cancers are not detected by mammography. A normal mammogram should not delay biopsy of a clinically suspicious abnormality. [id number] Electronically Signed: Bartolo Rausch MD at 9:02 EDT ,
== END | disposition home or self-care (01) ==
LOC: OPBI 07:24
PROVIDERS: PCP Internal Medicine; Referring Provider Internal Medicine; Visit Provider Internal Medicine
DX: Z12.31 Encounter for screening mammogram for malignant neoplasm of breast (principal)
CPT/HCPCS: 77063; 77067

== ENCOUNTER → 2025-04-06 | Outpatient (CLI) | payer BC, SELFPAY ==
[2025-04-06 15:03] LABS: Hematocrit 37.7 % (37-47); Hemoglobin 12.5 g/dL (12.0-15.0); Immature Granulocytes Count 0.010 X10^3/uL (0.0-0.0); Mean Corp Hgb Conc 33.2 g/dL (32-36); Mean Corpuscular Volume 83.4 fL (81-99); Mean Platelet Vol. 9.1 fl (6.2-12.0); NRBC Flagged by Analyzer 0 % (0-5); Platelet Count 203 K/mm3 (150-450); RBC Distribution Width CV 14.6 % (11.6-14.6); RBC Distribution Width SD 44.0 fl (35.1-43.9); Red Blood Count 4.52 M/mm3 (4.2-5.4); White Blood Count 3.4 K/mm3 (4.4-11.0)
[2025-04-06 15:05] LABS: Color, Urine Yellow (Yellow); Glucose, Dipstick Normal (Normal); Ketone-Dipstick 5 mg/dl (Negative); Leukocyte Esterase-Dipstick 100 /ul (Negative); Nitrite-Dipstick Negative (Negative); Occult Blood-Urine 25 /ul (Negative); Protein-Dipstick Negative (Negative); Specific Gravity, Urine 1.010 (1.002-1.030); Urine Bilirubin Dipstick Negative (Negative)
[2025-04-06 15:09] LABS: Prothrombin Time (Protime)PT. 23.8 SECONDS (11.7-14.9)
[2025-04-06 15:26] LABS: AST(SGOT) 25 U/L (<=31); Alanine Aminotransfer ALT/SGPT 30 U/L (<=34); Albumin, Serum 4.5 g/dL (3.5-5.0); Alkaline Phosphatase 96 U/L (35-104); Anion Gap 12 (5-15); BUN 13 mg/dL (4-19); BUN/Creat Ratio 19.7 RATIO (10-20); Calcium,Total 9.7 mg/dL (7.6-11.0); Carbon Dioxide 25.0 mmol/L (21.0-32.0); Chloride 103 mmol/L (98-108); Globulin 2.6 g/dL (2.2-4.2); Glucose 92 mg/dL (70-99); Potassium 4.0 mmol/L (3.3-5.1)
[2025-04-06 15:31] LABS: Creatinine, Urine (random) 36.20 mg/dL (28.00-217.00); Microalbumin,Random Urine < 12.0 mg/L (<20 mg/L)
== END | disposition home or self-care (01) ==
LOC: MTLAB 12:28
PROVIDERS: PCP Internal Medicine; Referring Provider Internal Medicine; Visit Provider Internal Medicine
DX: R79.89 Other specified abnormal findings of blood chemistry (principal); R73.09 Other abnormal glucose; Z79.01 Long term (current) use of anticoagulants; Z13.29 Encounter for screening for other suspected endocrine disorder
CPT/HCPCS: 36415; 80053; 81002; 82043; 82570; 83036; 84443; 85025; 85610

== ENCOUNTER → 2025-05-05 | Outpatient (CLI) | payer BC, SELFPAY ==
--- NOTE | 2025-05-05 11:50 | BI_ITS ---
EXAM: SCRN MAMM (CAD)W/FCO BILAT DATE: 05/05/2025 CLINICAL HISTORY: F, Age 59 y/o , SCREENING No family history. TECHNIQUE: Procedure Code: [id number] Modality: MG Procedure: SCRN MAMM (CAD)W/FCO BILAT COMPARISON: Prior exam(s) dated February 28, 2023.. FINDINGS: TISSUE DENSITY: The breasts are almost entirely fatty. Bilateral Breast Mammographic Findings: No significant masses, calcifications or other abnormalities are identified. Stable small bilateral benign-appearing axillary lymph nodes. No suspicious masses, areas of developing architectural distortion, or suspicious calcifications. There has been no significant interval change. BI/SCRN MAMM (CAD)W/FCO BILAT IMPRESSION: Stable bilateral screening mammogram. OVERALL FINAL ASSESSMENT BI-RADS 2: BENIGN RECOMMENDATION: Routine annual follow-up in 1 Year Additional Recommendation none A letter with findings and recommendations will be mailed to the patient. Reading Location: [facility]
== END | disposition home or self-care (01) ==
LOC: OPBI 11:49
PROVIDERS: PCP Internal Medicine; Referring Provider Internal Medicine; Visit Provider Internal Medicine
DX: Z12.31 Encounter for screening mammogram for malignant neoplasm of breast (principal)
CPT/HCPCS: 77063; 77067